=== PATIENT | male | born 1965 | race Caucasian/White ===

== ENCOUNTER 2020-01-23 06:39 | Day surgery (SDC) | payer BC ==
[2020-01-23] MEDS ORDERED: Midazolam 1 MG/ML 2 ML SDV IV ONE (06:40)
[2020-01-23] MEDS ORDERED: Propofol 200 MG/20 ML SDV IV ONE (06:40)
[2020-01-23] MEDS ORDERED: Sodium Chloride 0.9% 10 ML Syringe FLUSH PRN (06:45)
[2020-01-23] MEDS ORDERED: Lactated Ringers 1,000 ML IV SCH (06:45)
--- NOTE | 2020-01-23 08:05 | PCM.PN ---
- General Info Date of Service: 01/23/20 - Review of Systems Systems Review Comment:: 54 y/o male with 3 month history of unexplained diarrhea as well as history of colon polyps here for colonoscopy. He is medically stable to proceed. No recent respiratory problems. I have discussed the proposed colonoscopy with the patient. Risks such as but not limited to bleeding and GI injury discussed and he agrees to proceed. - Patient Data Vitals - Most Recent: Last Vital Signs Temp 97.4 F 01/23/20 07:33 Pulse 63 01/23/20 07:33 Resp 16 01/23/20 07:33 BP 110/72 01/23/20 07:33 Pulse Ox 100 01/23/20 07:33 Weight - Most Recent: 241 lb Med Orders - Current: Current Medications Lactated Ringer's (Ringers, Lactated) 1,000 mls @ 125 mls/hr IV ASDIRECTED IDALIA Last Admin: 01/23/20 07:21 Dose: 125 mls/hr Sodium Chloride (Saline Flush) 10 ml FLUSH ASDIRECTED PRN PRN Reason: Keep Vein Open Sepsis Event Note - Focused Exam Vital Signs: Vital Signs Temp Pulse Resp BP Pulse Ox 01/23/20 07:33 97.4 F 63 16 110/72 100 Date Exam was Performed: 01/23/20 Time Exam was Performed: 08:02 - Problem List Review Problem List Initiated/Reviewed/Updated: Yes - My Orders Last 24 Hours: My Active Orders 01/22/20 12:57 Resuscitation Status Routine 01/22/20 Dinner Nothing Per Oral Diet [DIET] 01/23/20 06:45 Patient Status [ADT] Routine Patient to Empty Bladder [RC] ASDIRECTED Verify Patient Consent Obtain [RC] ASDIRECTED Lactated Ringers [Ringers, Lactated] 1,000 ml IV ASDIRECTED Sodium Chloride 0.9% [Saline Flush] 10 ml FLUSH ASDIRECTED PRN Peripheral IV Insertion Adult [OM.PC] Routine - Assessment Assessment:: Diarrhea History of colon polyps - Plan Plan:: Colonoscopy
--- NOTE | 2020-01-23 08:33 | PCM.OPNOTE ---
- General Post-Op/Procedure Note Date of Surgery/Procedure: 01/23/20 Operative Procedure(s): Colonoscopy with biopsy Findings: Normal-appearing colon and terminal ileum Pre Op Diagnosis: Unexplained diarrhea. History of colon polyps Post-Op Diagnosis: Normal colonoscopy Anesthesia Technique: [facility] [place] Surgeon: Pablo Kumar Pathology: Biopsies of colon and terminal ileum EBL in mLs: 4 Complications: None Condition: Good
--- NOTE | 2020-01-23 09:37 | OR ---
DATE OF OPERATION: 01/23/2020 SURGEON: Pablo Kumar MD PREOPERATIVE DIAGNOSES: 1. Unexplained diarrhea. 2. History of colon polyps. POSTOPERATIVE DIAGNOSIS: Normal colon. OPERATION PERFORMED: Colonoscopy with biopsy. INDICATIONS FOR SURGERY: This 54-year-old male has a several-month history of unexplained diarrhea. In addition, he has a history of colon polyps in the past and is now referred for colonoscopy. FINDINGS: The patient's colon and terminal ileum appeared normal. There was no visible signs of inflammation or anatomic abnormalities. There was no polyps seen. PROCEDURE IN DETAIL: The patient was taken to the procedure room. He was given intravenous sedation, and with him in the left lateral decubitus position, digital rectal exam was performed showing no rectal masses. The Olympus colonoscope was inserted into the rectum. Retroflexed examination of the rectal canal was performed. The scope was then carefully advanced under direct visualization through the entire length of the colon until the cecum was reached. Cecal acquisition was confirmed by noting the normal internal cecal anatomy including the appendiceal orifice and ileocecal valve. The ileocecal valve was cannulated and the terminal ileum was examined. This area appeared normal. Random biopsies of the terminal ileum were taken. The scope was then slowly withdrawn back into the colon, and then withdrawn through the colon sequentially re-examining the colonic segments. During withdrawal of the scope, random biopsies were taken of the left and right sides of the colon because of his symptoms of diarrhea. After the entire colon and rectum have been fully examined, and with no sign of any complications, the scope was removed and the patient was taken from the procedure room in satisfactory condition. ESTIMATED BLOOD LOSS: 4 mL. COMPLICATIONS: None. PROGNOSIS: Good, /[id number] ANY/FEDERICO
== END 2020-01-23 09:34 | disposition home or self-care (01) ==
LOC: FB.SDS 06:39
PROVIDERS: ATTEND Surgery
DX: R19.7 Diarrhea, unspecified (principal); E78.5 Hyperlipidemia, unspecified; F41.1 Generalized anxiety disorder; E83.119 Hemochromatosis, unspecified; K76.0 Fatty (change of) liver, not elsewhere classified; E78.2 Mixed hyperlipidemia; F10.10 Alcohol abuse, uncomplicated; Z86.010 Personal history of colon polyps; Z98.890 Other specified postprocedural states
CPT/HCPCS: 88305; J2250; J2704; J7120